=== PATIENT | female | born 1965 | race Caucasian/White ===

== ENCOUNTER 2022-09-05 04:06 | Day surgery (SDC) | payer BC ==
[2022-08-30 16:26] VITALS: BMI 20.1
[2022-09-05] MEDS ORDERED: CEFAZOLIN 2 GM in DEXTROSE 5%-WATER - 100 ML IVPB ONE (07:30)
[2022-09-05] MEDS ORDERED: HYDROmorphone HCl 2 MG/ML VIAL ONE (09:28)
[2022-09-05] MEDS ORDERED: MIDAZOLAM HCL 2 MG/2 ML SINGLE DOSE VIAL ONE (09:29)
[2022-09-05] MEDS ORDERED: PROPOFOL 40 ML ONE (09:29)
[2022-09-05] MEDS ORDERED: ceFAZolin SODIUM 1 GM VIAL ONE (09:29)
[2022-09-05] MEDS ORDERED: ROCURONIUM BROMIDE 50 MG/5 ML SYRINGE ONE (09:29)
[2022-09-05] MEDS ORDERED: LIDOCAINE HCL 1%, 10 MG/ML (20ML VIAL) ONE (09:55)
[2022-09-05] MEDS ORDERED: BUPIVACAINE HCL/PF 0.5% (5MG/ML) 10 ML VIAL ONE (09:55)
[2022-09-05] MEDS ORDERED: EPINEPHrine/PF 1 MG/1 ML (1:1,000) AMPULE ONE (09:59)
[2022-09-05] MEDS ORDERED: TRIAMCINOLONE ACET 40MG/1ML VIAL ONE (10:11)
[2022-09-05] MEDS ORDERED: ceFAZolin SODIUM 1 GM VIAL IVPB ONE (10:47)
[2022-09-05] MEDS ORDERED: TRIAMCINOLONE ACET 40MG/1ML VIAL IM ONE (11:25)
[2022-09-05] MEDS ORDERED: GLYCOPYRROLATE 0.2 MG/1 ML VIAL ONE (12:32)
[2022-09-05] MEDS ORDERED: NEOSTIGMINE METHYLSULFATE 0.5 MG/1 ML - 10 ML MDV ONE (12:32)
[2022-09-05] MEDS ORDERED: ONDANSETRON 4 MG/2 ML VIAL IVPUSH PRN ×2 (13:03→13:07)
[2022-09-05] MEDS ORDERED: ZOLPIDEM TARTRATE 5 MG TABLET PO PRN (13:07)
[2022-09-05] MEDS ORDERED: BISACODYL 5 MG TABLET.DR (FP) PO PRN (13:07)
[2022-09-05] MEDS ORDERED: oxyCODONE HCL 5 MG TABLET PO PRN (13:07)
[2022-09-05] MEDS ORDERED: SODIUM CHLORIDE 1,000 ML IV SCH (13:15)
[2022-09-05] MEDS ORDERED: ACETAMINOPHEN INJECTION 100 ML IVPB ONE (13:55)
[2022-09-05] MEDS ORDERED: IBUPROFEN 800 MG/8 ML IJ IVPB ONE (13:55)
[2022-09-05] MEDS: ACETAMINOPHEN 1000 MG/100 ML BAG IVPB SCH ×2 (14:00→19:13)
[2022-09-05] MEDS: IBUPROFEN 800 MG/8 ML IJ IVPB SCH ×2 (14:15→21:23)
[2022-09-05] MEDS: CEFAZOLIN 1 GM in DEXTROSE 5%-WATER - 50 ML IVPB SCH (18:14)
[2022-09-05] MEDS: THYROID 60 MG TABLET PO SCH ×2 (18:56→22:25)
[2022-09-05] MEDS: SIMETHICONE 80 MG TAB.CHEW (FP) PO PRN (20:17)
[2022-09-05] MEDS: oxyCODONE HCL 5 MG TABLET PO PRN (20:17)
[2022-09-05 20:43] VITALS: RESP 18
[2022-09-05 21:11] LABS: HEMOGLOBIN 11.3 GM/dL (10.7-15.3); MCH 31.3 pg (25.7-33.7); MCHC 34.1 g/dl (32.0-36.0); MEAN CELL VOLUME 91.9 fl (80-96); MEAN PLT VOLUME 8.8 fl (7.5-11.1); PLATELET COUNT 140 10^3/uL (134-434); RDW 12.8 % (11.6-15.6); WHITE BLOOD COUNT 6.6 K/mm3 (4.0-10.0)
[2022-09-05] MEDS: THYROID 30 MG TABLET PO SCH (22:24)
[2022-09-05] MEDS: LOSARTAN POTASSIUM 25 MG TABLET PO SCH (22:24)
[2022-09-05] MEDS: DOCUSATE SODIUM 100 MG CAPSULE (FP) PO PRN (22:24)
[2022-09-06] MEDS: ACETAMINOPHEN 1000 MG/100 ML BAG IVPB SCH ×2 (01:28→07:19)
[2022-09-06] MEDS: CEFAZOLIN 1 GM in DEXTROSE 5%-WATER - 50 ML IVPB SCH (02:28)
[2022-09-06] MEDS: SIMETHICONE 80 MG TAB.CHEW (FP) PO PRN (02:37)
[2022-09-06] MEDS: oxyCODONE HCL 5 MG TABLET PO PRN (02:37)
[2022-09-06] MEDS: IBUPROFEN 800 MG/8 ML IJ IVPB SCH (05:57)
[2022-09-06] MEDS: THYROID 30 MG TABLET PO SCH (06:26)
[2022-09-06] MEDS: DOCUSATE SODIUM 100 MG CAPSULE (FP) PO PRN (08:30)
[2022-09-06 08:34] LABS: HEMOGLOBIN 10.9 GM/dL (10.7-15.3); MCH 32.4 pg (25.7-33.7); MCHC 35.1 g/dl (32.0-36.0); MEAN CELL VOLUME 92.3 fl (80-96); MEAN PLT VOLUME 8.8 fl (7.5-11.1); PLATELET COUNT 130 10^3/uL (134-434); RBC 3.35 M/mm3 (3.60-5.2); RDW 12.7 % (11.6-15.6); WHITE BLOOD COUNT 7.6 K/mm3 (4.0-10.0)
[2022-09-06 09:20] VITALS: BP 131/63; PULSE 67; TEMP 98
[2022-09-06] MEDS ORDERED: PATIENT'S OWN MEDICATION (NON-FORMULARY) (Ubidecarenone [Co Q-10] 100 MG Capsule) PO SCH (10:00)
[2022-09-06] MEDS: LOSARTAN POTASSIUM 25 MG TABLET PO SCH (10:00)
[2022-09-06] MEDS ORDERED: ACETAMINOPHEN 500 MG TABLET (FP) PO PRN (13:00)
== END 2022-09-06 12:10 | disposition home or self-care (01) ==
LOC: JASU-SURG 04:06 → JASUSAT 04:06 → J3W 15:52 → JASUSAT 09-06 12:10
PROVIDERS: ATTEND Specialist
PROC: 0UT9FZZ Resection of Uterus, Via Natural or Artificial Opening With Percutaneous Endoscopic Assistance (ICD-10-PCS; principal; 2022-09-05 10:00)
PROC: 8E0W4CZ Robotic Assisted Procedure of Trunk Region, Percutaneous Endoscopic Approach (ICD-10-PCS; 2022-09-05 10:00)
DX: D25.1 Intramural leiomyoma of uterus (principal); N84.1 Polyp of cervix uteri; D27.0 Benign neoplasm of right ovary; N94.89 Other specified conditions associated with female genital organs and menstrual cycle
CPT/HCPCS: 58552; S2900; 36415; 85027; 86850; 86900; 86901; 88108; 88304-TC; 88305-TC; 88307-TC; 94010; 94760

== ENCOUNTER 2022-09-12 19:50 | Observation (INO) | payer BC ==
[2022-09-12] MEDS ORDERED: SODIUM CHLORIDE 1,000 ML IV STA (20:39)
[2022-09-12] MEDS ORDERED: ACETAMINOPHEN 1000 MG/100 ML BAG IVPB ONE (20:45)
[2022-09-12] MEDS ORDERED: ACETAMINOPHEN INJECTION 100 ML IVPB ONE (20:45)
[2022-09-12] MEDS ORDERED: PIPERACILLIN/TAZOB 4.5 GM 4.5 GM in DEXTROSE 5%-WATER 100 ML IVPB ONE (20:53)
[2022-09-12] MEDS ORDERED: PIPERACILLIN/TAZOB 4.5 GM 4.5 GM/100 ML BAG IVPB ONE (21:30)
[2022-09-12 21:53] LABS: VENOUS BASE EXCESS 1.7 mmol/L (-2-2); VENOUS O2 SATURATION 71.6 % (70-80); VENOUS PCO2 45.2 mmHg (38-52); VENOUS PH 7.396 (7.310-7.410)
[2022-09-12 21:56] LABS: BASO % 0.6 % (0-2.0); EOS % 1.4 % (0-4.5); HEMATOCRIT 35.5 % (32.4-45.2); HEMOGLOBIN 12.4 GM/dL (10.7-15.3); MCH 31.9 pg (25.7-33.7); MEAN CELL VOLUME 91.2 fl (80-96); MEAN PLT VOLUME 8.3 fl (7.5-11.1); MONO % 8.9 % (3.8-10.2); NEUT % 71.1 % (42.8-82.8); PLATELET COUNT 242 10^3/uL (134-434); RBC 3.89 M/mm3 (3.60-5.2); RDW 12.2 % (11.6-15.6); WHITE BLOOD COUNT 7.8 K/mm3 (4.0-10.0)
[2022-09-12 22:13] LABS: ACTIVATED PTT 31.5 SECONDS (25.2-36.5)
[2022-09-12 22:14] LABS: INR 1.11 (0.83-1.09); PROTHROMBIN TIME (PATIENT) 12.9 SEC (9.7-13.0)
[2022-09-12 22:18] LABS: CALCIUM 8.8 mg/dL (8.5-10.1)
[2022-09-12 22:19] LABS: ALBUMIN 3.6 g/dl (3.4-5.0); BLOOD UREA NITROGEN 12.6 mg/dL (7-18)
[2022-09-12 22:22] LABS: CREATININE 0.6 mg/dL (0.55-1.3)
[2022-09-12 22:24] LABS: BILIRUBIN,TOTAL 0.5 mg/dL (0.2-1); TOT PROT 7.1 g/dl (6.4-8.2)
[2022-09-12 22:25] LABS: PH,URINE 7.5 (5.0-8.0); URINE APPEARANCE CLEAR; URINE BILIRUBIN NEGATIVE (NEGATIVE); URINE COLOR YELLOW; URINE GLUCOSE (UA) NEGATIVE (NEGATIVE); URINE KETONE NEGATIVE (NEGATIVE); URINE LEUK ESTERASE NEGATIVE (NEGATIVE); URINE NITRITE NEGATIVE (NEGATIVE); URINE PROTEIN NEGATIVE (NEGATIVE); URINE UROBILINOGEN 0.2 mg/dL (0.2-1.0)
[2022-09-12] MEDS ORDERED: morphine CARPU-JECT 4 MG/1 ML DISP.SYRIN IVPUSH ONE (23:51)
[2022-09-12] MEDS ORDERED: morphine SULFATE 4 MG/ML VIAL ONE (23:53)
[2022-09-13] MEDS ORDERED: ACETAMINOPHEN 1000 MG/100 ML BAG IVPB ONE (00:04)
[2022-09-13] MEDS: oxyCODONE HCL 5 MG TABLET PO PRN ×2 (02:21→06:41)
[2022-09-13] MEDS: SODIUM CHLORIDE 1,000 ML IV SCH (02:22)
[2022-09-13] MEDS: PIPERACILLIN/TAZOB 3.375 GM 3.375 GM in DEXTROSE 5%-WATER - 50 ML IVPB SCH ×3 (03:50→17:30)
[2022-09-13] MEDS ORDERED: ACETAMINOPHEN 1000 MG/100 ML BAG IVPB PRN ×2 (06:51→11:24)
[2022-09-13 08:18] LABS: BASO % 0.8 % (0-2.0); EOS % 2.1 % (0-4.5); HEMATOCRIT 32.8 % (32.4-45.2); HEMOGLOBIN 11.3 GM/dL (10.7-15.3); LYMPH % 24.4 % (8-40); MCH 31.4 pg (25.7-33.7); MCHC 34.4 g/dl (32.0-36.0); MEAN CELL VOLUME 91.3 fl (80-96); MEAN PLT VOLUME 8.6 fl (7.5-11.1); MONO % 10.1 % (3.8-10.2); NEUT % 62.6 % (42.8-82.8); PLATELET COUNT 230 10^3/uL (134-434); RBC 3.59 M/mm3 (3.60-5.2); RDW 12.5 % (11.6-15.6); WHITE BLOOD COUNT 6.1 K/mm3 (4.0-10.0)
[2022-09-13 08:21] VITALS: BMI 21.4
[2022-09-13 08:27] LABS: CALCIUM 8.5 mg/dL (8.5-10.1)
[2022-09-13 08:28] LABS: ALBUMIN 3.2 g/dl (3.4-5.0); BLOOD UREA NITROGEN 10.7 mg/dL (7-18); MAGNESIUM 2.1 mg/dL (1.8-2.4)
[2022-09-13 08:30] LABS: CREATININE 0.6 mg/dL (0.55-1.3)
[2022-09-13 08:32] LABS: BILIRUBIN,TOTAL 0.7 mg/dL (0.2-1); TOT PROT 6.3 g/dl (6.4-8.2)
[2022-09-13 09:16] LABS: ERYTHROCYTE SEDIMENTATION RATE 94 mm/hr (0-30)
[2022-09-13] MEDS: LOSARTAN POTASSIUM 25 MG TABLET PO SCH ×2 (09:28→21:15)
[2022-09-13] MEDS: OMEGA-3 ACID ETHYL ESTERS (FATTY-ACIDS) 1 GM CAPSULE (FP) PO SCH (09:28)
[2022-09-13] MEDS: MAGNESIUM OXIDE 400 MG TABLET (FP) PO SCH (09:28)
[2022-09-13] MEDS: CHOLECALCIFEROL (VIT D3) 1,000 UNIT (25 MCG) TABLET PO SCH (09:28)
[2022-09-13] MEDS ORDERED: PATIENT'S OWN MEDICATION (NON-FORMULARY) (Ubidecarenone [Co Q-10] 100 MG Capsule) PO SCH (10:00)
[2022-09-13] MEDS ORDERED: ENOXAPARIN NA (PORCINE) 40 MG/0.4 ML DISP.SYRIN SQ SCH (10:00)
[2022-09-13] MEDS ORDERED: oxyCODONE HCL 5 MG TABLET PO PRN (11:23)
[2022-09-13] MEDS: THYROID 30 MG TABLET PO SCH ×2 (11:34→18:06)
[2022-09-13] MEDS: KETOROLAC TROMETHAMINE 15 MG/ML VIAL IVPUSH PRN (20:26)
[2022-09-14] MEDS: SODIUM CHLORIDE 1,000 ML IV SCH (01:37)
[2022-09-14] MEDS: PIPERACILLIN/TAZOB 3.375 GM 3.375 GM in DEXTROSE 5%-WATER - 50 ML IVPB SCH ×4 (01:38→10:09)
[2022-09-14] MEDS ORDERED: THYROID 30 MG TABLET PO SCH (07:00)
[2022-09-14] MEDS: THYROID 30 MG TABLET PO SCH ×3 (09:00→22:06)
[2022-09-14 09:02] LABS: HEMATOCRIT 32.5 % (32.4-45.2); HEMOGLOBIN 11.3 GM/dL (10.7-15.3); MCH 31.3 pg (25.7-33.7); MCHC 34.8 g/dl (32.0-36.0); MEAN CELL VOLUME 90.2 fl (80-96); MEAN PLT VOLUME 8.5 fl (7.5-11.1); PLATELET COUNT 246 10^3/uL (134-434); RDW 12.2 % (11.6-15.6); WHITE BLOOD COUNT 6.8 K/mm3 (4.0-10.0)
[2022-09-14 09:42] LABS: BLOOD UREA NITROGEN 9.8 mg/dL (7-18)
[2022-09-14 09:43] LABS: CALCIUM 8.8 mg/dL (8.5-10.1)
[2022-09-14 09:45] LABS: CREATININE 0.6 mg/dL (0.55-1.3)
[2022-09-14 09:46] LABS: PHOSPHOROUS 3.2 mg/dL (2.5-4.9)
[2022-09-14] MEDS: LOSARTAN POTASSIUM 25 MG TABLET PO SCH ×2 (10:09→22:06)
[2022-09-14] MEDS: MAGNESIUM OXIDE 400 MG TABLET (FP) PO SCH (10:09)
[2022-09-14] MEDS: CHOLECALCIFEROL (VIT D3) 1,000 UNIT (25 MCG) TABLET PO SCH (10:09)
[2022-09-14] MEDS: ONDANSETRON 4 MG/2 ML VIAL IVPUSH PRN (10:09)
[2022-09-14] MEDS: OMEGA-3 ACID ETHYL ESTERS (FATTY-ACIDS) 1 GM CAPSULE (FP) PO SCH (10:52)
[2022-09-14] MEDS ORDERED: FENTANYL CITRATE/PF 50 MCG/ML VIAL ONE (12:26)
[2022-09-14] MEDS ORDERED: MIDAZOLAM HCL 2 MG/2 ML SINGLE DOSE VIAL ONE (12:27)
[2022-09-14] MEDS: ACETAMINOPHEN 325 MG TABLET (FP) PO PRN (17:06)
[2022-09-14] MEDS: ERTAPENEM SODIUM 1 GM in SODIUM CHLORIDE 50 ML IVPB SCH (17:15)
[2022-09-15] MEDS: ACETAMINOPHEN 325 MG TABLET (FP) PO PRN (02:47)
[2022-09-15] MEDS: THYROID 30 MG TABLET PO SCH ×2 (06:49→18:05)
[2022-09-15] MEDS: ERTAPENEM SODIUM 1 GM in SODIUM CHLORIDE 50 ML IVPB SCH (09:31)
[2022-09-15] MEDS: OMEGA-3 ACID ETHYL ESTERS (FATTY-ACIDS) 1 GM CAPSULE (FP) PO SCH (09:31)
[2022-09-15] MEDS: LOSARTAN POTASSIUM 25 MG TABLET PO SCH ×2 (09:32→21:24)
[2022-09-15] MEDS: MAGNESIUM OXIDE 400 MG TABLET (FP) PO SCH (09:32)
[2022-09-15] MEDS: CHOLECALCIFEROL (VIT D3) 1,000 UNIT (25 MCG) TABLET PO SCH (09:32)
[2022-09-15] MEDS: ONDANSETRON 4 MG/2 ML VIAL IVPUSH PRN (09:37)
[2022-09-15 10:46] LABS: HEMATOCRIT 35.9 % (32.4-45.2); HEMOGLOBIN 12.2 GM/dL (10.7-15.3); MCH 30.9 pg (25.7-33.7); MCHC 33.9 g/dl (32.0-36.0); MEAN CELL VOLUME 91.1 fl (80-96); MEAN PLT VOLUME 8.4 fl (7.5-11.1); PLATELET COUNT 284 10^3/uL (134-434); RBC 3.94 M/mm3 (3.60-5.2); RDW 12.2 % (11.6-15.6); WHITE BLOOD COUNT 6.4 K/mm3 (4.0-10.0)
[2022-09-15 11:27] LABS: ERYTHROCYTE SEDIMENTATION RATE 67 mm/hr (0-30)
[2022-09-15 11:34] LABS: CALCIUM 9.2 mg/dL (8.5-10.1)
[2022-09-15 11:35] LABS: BLOOD UREA NITROGEN 13.3 mg/dL (7-18)
[2022-09-15 11:38] LABS: CREATININE 0.6 mg/dL (0.55-1.3)
[2022-09-15] MEDS: KETOROLAC TROMETHAMINE 15 MG/ML VIAL IVPUSH PRN (14:59)
[2022-09-16] MEDS: THYROID 30 MG TABLET PO SCH (06:14)
[2022-09-16 07:50] LABS: BASO % 0.8 % (0-2.0); EOS % 5.1 % (0-4.5); HEMATOCRIT 34.5 % (32.4-45.2); HEMOGLOBIN 11.9 GM/dL (10.7-15.3); LYMPH % 29.5 % (8-40); MCH 31.5 pg (25.7-33.7); MCHC 34.5 g/dl (32.0-36.0); MEAN CELL VOLUME 91.2 fl (80-96); MEAN PLT VOLUME 8.2 fl (7.5-11.1); MONO % 9.2 % (3.8-10.2); NEUT % 55.4 % (42.8-82.8); PLATELET COUNT 277 10^3/uL (134-434); RBC 3.78 M/mm3 (3.60-5.2); WHITE BLOOD COUNT 5.8 K/mm3 (4.0-10.0)
[2022-09-16 08:31] LABS: CALCIUM 8.8 mg/dL (8.5-10.1)
[2022-09-16 08:32] LABS: BLOOD UREA NITROGEN 14.4 mg/dL (7-18)
[2022-09-16 08:35] LABS: CREATININE 0.7 mg/dL (0.55-1.3)
[2022-09-16] MEDS: LOSARTAN POTASSIUM 25 MG TABLET PO SCH (09:43)
[2022-09-16] MEDS: MAGNESIUM OXIDE 400 MG TABLET (FP) PO SCH (09:43)
[2022-09-16] MEDS: CHOLECALCIFEROL (VIT D3) 1,000 UNIT (25 MCG) TABLET PO SCH (09:43)
[2022-09-16] MEDS: OMEGA-3 ACID ETHYL ESTERS (FATTY-ACIDS) 1 GM CAPSULE (FP) PO SCH (09:43)
[2022-09-16] MEDS: ERTAPENEM SODIUM 1 GM in SODIUM CHLORIDE 50 ML IVPB SCH (09:44)
[2022-09-16 13:37] VITALS: BP 136/79; PULSE 71; RESP 16; TEMP 97.6
== END 2022-09-16 14:35 | disposition home health service (06) ==
LOC: JER 19:50 → JERBED 09-13 00:04 → UNDOADMOB 09-13 00:04 → OBSVTOIN 09-13 01:52 → INTOOBSV 09-13 01:52 → JERBED 09-13 02:08 → J6S 09-13 02:08
PROVIDERS: ADMIT Internal Medicine; ATTEND Internal Medicine
PROC: 02HV33Z Insertion of Infusion Device into Superior Vena Cava, Percutaneous Approach (ICD-10-PCS; principal; 2022-09-13)
PROC: 3E033NZ Introduction of Analgesics, Hypnotics, Sedatives into Peripheral Vein, Percutaneous Approach (ICD-10-PCS; 2022-09-13)
PROC: 3E023GC Introduction of Other Therapeutic Substance into Muscle, Percutaneous Approach (ICD-10-PCS; 2022-09-13)
PROC: 3E0333Z Introduction of Anti-inflammatory into Peripheral Vein, Percutaneous Approach (ICD-10-PCS; 2022-09-13)
PROC: 3E0337Z Introduction of Electrolytic and Water Balance Substance into Peripheral Vein, Percutaneous Approach (ICD-10-PCS; 2022-09-13)
DX: R10.2 Pelvic and perineal pain (principal); A08.8 Other specified intestinal infections; I10 Essential (primary) hypertension; E03.9 Hypothyroidism, unspecified; A69.20 Lyme disease, unspecified; Z88.0 Allergy status to penicillin; Z88.8 Allergy status to other drugs, medicaments and biological substances
CPT/HCPCS: 36569; 96361; 96365; 96368; 96372; 96375; C8957; 0241U-QW; 36415; 71045-TC-FY; 74177-TC; 77001-TC-FY; 80048; 80053; 81003; 82803; 83605; 83735; 84100; 84484; 85025; 85027; 85610; 85651; 85730; 86140; 87040; 87086; 87186; 87324; 87449; 93005; 93010; 99285-25; C1751; G0378; Q9967